=== PATIENT | male | born 1970 | race Two or more races ===

== ENCOUNTER 2024-03-25 15:46 | Emergency (ER) | payer OTHER, SELFPAY ==
[2024-03-25 15:58] VITALS: BP 152/91; PULSE 90; RESP 18; TEMP 37.1; O2SAT 98; BMI 30.4
--- NOTE | 2024-03-25 16:02 | XR_ITS ---
Examination: Knee bilateral, 6 views Technique: Knee AP, lateral, oblique each knee total 6 views Date and time of exam: March 25, 2024 1605 hours INDICATIONS: Abnormal injury to both knees 30 years ago with persistent knee pain more severe the last 2 years. 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
[2024-03-25] MEDS: KETOROLAC INJ 30 MG/ML VIAL IM (16:18)
--- NOTE | 2024-03-25 16:46 | EDNOTE_ITS ---
Lower Extremity Injury RME/HPI General Chief Complaint: Extremity Injury, Lower Stated Complaint: B/L CHRONIC KNEE PAIN Time Seen by Provider: 03/25/24 16:02 Arrival date/time: 03/25/24 15:46 53-year-old male presents emergency department complains of bilateral knee pain patient reports chronic knee pain requiring multiple surgeries patient [facility] patient requesting [facility]-rays at this time secondary to his primary care doctor and that he will have outpatient MRI as per patient. Patient reports he takes Nucynta daily Limitations: no limitations Related Data Previous Rx's ?Medication ?Instructions ?Recorded potassium chloride 20 mEq 20 meq PO QDAY #5 tabs 03/12/20 tablet,extended release Allergies Allergy/AdvReac Type Severity Reaction Status Date / Time clotrimazole [From Lotrimin] Allergy Severe Hives Verified 09/19/21 13:22 Review of Systems Review of Systems Systems Reviewed: All systems reviewed, normal except as documented Constitutional Constitutional: Reports system reviewed and no additional complaints, except as documented, Denies fever(s) and Denies headache(s) Eyes Eyes: Reports system reviewed and no additional complaints, except as documented and Denies blurry vision ENT Ears, Nose, Mouth, and Throat: Reports system reviewed and no additional complaints, except as documented, Denies headache(s), Denies nasal congestion and Denies nasal discharge Cardiovascular Cardiovascular: Reports system reviewed and no additional complaints, except as documented, Denies chest pain and Denies dyspnea Respiratory Respiratory: Reports system reviewed and no additional complaints, except as documented, Denies chest congestion, Denies cough and Denies dyspnea Gastrointestinal Gastrointestinal: Reports system reviewed and no additional complaints, except as documented and Denies abdominal pain Musculoskeletal Musculoskeletal: Reports system reviewed and no additional complaints, except as documented, Reports arthralgias, Denies deformity, Denies numbness, Denies stiffness and Denies tingling Integumentary/Breasts Skin/Breast: Reports system reviewed and no additional complaints, except as documented and Denies rash Neurologic Neurologic: Reports system reviewed and no additional complaints, except as documented, Reports as per HPI, Denies headache(s), Denies numbness and Denies tingling Past Medical History Past Medical History CARDIAC: Positive Hypertension; Negative Congestive Heart Failure RESPIRATORY: Positive Asthma and Pneumonia; Negative Chronic Obstructive Pulmonary Disease (COPD), Emphysema or Tuberculosis GENITOURINARY: Negative Renal Disease MUSCULOSKELETAL: Positive Rheumatoid Arthritis ENDOCRINE: Negative Diabetes Mellitus Type 1 or Diabetes Mellitus Type 2 PSYCHO/SOCIAL: Positive Post Traumatic Stress Disorder OTHER HISTORY: Negative Cancer Social History SMOKING STATUS: Never smoker ED Exam General Limitations: Present no limitations General appearance: Present alert and in no apparent distress Head Head exam: Present atraumatic Eye Eye exam: Present normal appearance, PERRL and EOMI ENT ENT exam: Present normal exam, normal oropharynx and mucous membranes moist Neck Neck exam: Present normal inspection, full ROM and trachea midline Chest Chest inspection: Present normal inspection and symmetric chest wall rise Respiratory Respiratory exam: Present normal lung sounds bilaterally Cardiovascular Cardiovascular exam: Present regular rate, normal rhythm and normal heart sounds Abdominal Exam Abdominal exam: Present soft and normal bowel sounds Extremities Exam Extremities exam: Present normal inspection, full ROM, tenderness (Pain bilateral knees), normal capillary refill and joint swelling (Chronic pain and swelling); Absent pedal edema or calf tenderness Back Exam Back exam: Present normal inspection and full ROM Neurological Exam Neurological exam: Present alert, oriented X3 and CN II-XII intact Psychiatric Psychiatric exam: Present normal affect and normal mood Skin Skin exam: Present warm, dry, intact and normal color Course Quality Measures none Orders Category Date Time Status XR knee BI 3V Stat Exams 03/25/24 16:02 Completed Ketorolac Inj [Toradol Inj] Med 03/25/24 16:02 Discontinued 30 mg IM X1 ONE Vital Signs Vital signs: Vital Signs Temperature 98.8 F 03/25/24 15:58 Pulse Rate 90 03/25/24 15:58 Respiratory Rate 18 03/25/24 15:58 Blood Pressure 152/91 H 03/25/24 15:58 Pulse Oximetry (%) 98 03/25/24 15:58 Oxygen Delivery Method Room Air 03/25/24 15:58 o2 sat 98% r/a wnl Extremity Injury, Lower MDM Narrative MDM Narrative:: 53-year-old male presents emergency department complains of bilateral knee pain patient reports chronic knee pain requiring multiple surgeries patient reports he is a patient of the [place] patient requesting x-rays at this time secondary to his primary care doctor and that he will have outpatient MRI as per patient. Patient reports he takes Nucynta daily Patient given Toradol for pain here X-rays completed patient given copy of his x-ray reports [facility] Patient has a small piece of metal in his left knee patient reports that this is secondary to a shrapnel injury Patient discharged home in no distress to follow-up with primary care doctor in the next 24 to 48 hours and for any worsening symptoms to return to the ER im mediately Patient data External records reviewed:: [facility] previous records Clinical information provided by:: patient Social determinants that could affect healthcare access:: none Patient has the following chronic illnesses:: see hx How is presenting disease/condition affected by chronic disease/condition?: caused by Evaluation data The following diagnostics were reviewed and interpreted by me:: radiology exam(s) Lab and/or radiology exams considered but not ordered:: Radiology obtained Interpretation Summary: Reviewed by me Medications / Prescriptions Medications or Prescriptions considered but not ordered:: Given Medication administrations:: Medication Administration History Discontinued Medications Ketorolac Tromethamine (Ketorolac Inj 30 Mg/Ml Vial) 30 mg IM X1 ONE Stop: 03/25/24 16:03 Last Admin: 03/25/24 16:18 Dose: 30 mg Documented By: Given Consultations Consultation(s) initiated? (list below): No Diagnosis Extremity Injury, Lower Differential Diagnosis: acute internal derangement of knee and other (Knee sprain, knee fracture) Most likely diagnosis given after review of the tests above:: Knee sprain Admission Indicated Admission indicated?: not indicated Admission Request Was there a request for admission?: No Disposition Plan Disposition Plan: Discharge Discharge Attestation Discharge Attestation: The patient and all family members were given an opportunity to ask questions and understood the discharge instructions. Discharge instructions specifically effects, indications for sooner follow up or return to the emergency department, and the expected course of current diagnosis. Patient condition: Stable Discharge Plan Plan Patient Disposition: HOME (Self Care) Disposition Comment: stable Prescriptions/Referrals Prescriptions/Med Rec: No Action potassium chloride 20 mEq tablet extended release 20 meq PO QDAY Qty: 5 0RF Referrals: Ean Ugarte MD [Primary Care Provider] - 03/26/24 Problem List Clinical Impression: Bilateral knee pain Patient/Caregiver Discharge Instructions Education Materials: ED Arthralgia Additional Instructions: Please follow up with your primary care doctor in the next 24-48hrs for any worsening symptoms return here immediately Print Language: Macedonian Stand Alone Forms: Katheryn Award Info., Patient Portal Info Letter PA/LAURO Supervising Physician KHALIF/LAURO Supervising Physician: dr saunders
== END 2024-03-25 16:55 | disposition home or self-care (01) ==
PROVIDERS: Emergency Provider Emergency Medicine; PCP Family Medicine
DX: M25.562 Pain in left knee (principal); M25.561 Pain in right knee
CPT/HCPCS: 73562; 96372; 99283; J1885

== ENCOUNTER → 2024-05-13 | Outpatient (CLI) | payer BC, OTHER, SELFPAY ==
[2024-05-13 15:15] LABS: Basophils # (Auto) 0.1 Thou/mm3 (0.0-0.2); Basophils % (Auto) 1 % (0-2.5); Eosinophils # (Auto) 0.1 Thou/mm3 (0.0-0.5); Eosinophils % (Auto) 2 % (0-10); Hematocrit 43.5 % (41.0-53.0); Hemoglobin 14.6 g/dL (13.5-16.0); Immature Granulocytes % (Auto) 0 % (0-0); Immature Granulocytes Auto 0.02 Thou/mm3 (0.00-0.00); Lymphocytes # (Auto) 3.3 Thou/mm3 (1.0-4.8); Lymphocytes % (Auto) 45 % (10-50); Mean Corpuscular HGB Conc 33.6 g/dl (31.0-37.0); Mean Corpuscular Hemoglobin 29.2 pg (25.0-35.0); Mean Corpuscular Volume 87 fL (80-100); Monocytes # (Auto) 0.7 Thou/mm3 (0.0-0.8); Monocytes % (Auto) 10 % (0-12); Neutrophils # (Auto) 3.1 Thou/mm3 (1.8-7.7); Neutrophils % (Auto) 42 % (37-80); Nucleated Red Blood Cell % 0 /100 WBC (0); Platelet Count 218 Thou/mm3 (140-440); RDW Standard Deviation 42.1 fL (35.1-43.9); White Blood Count 7.3 Thou/mm3 (3.8-10.6)
[2024-05-13 15:24] LABS: Glucose Estimated Average 100 mg/dL (80-131); Hemoglobin A1C 5.1 % Hgb (4.8-6.0)
[2024-05-13 15:45] LABS: Ferritin 119 ng/mL (10.5-307.3); PSA Medicare Annual Scrn 0.71 ng/mL (0-4.00)
[2024-05-13 16:31] LABS: Sed Rate (ESR) 19 mm/hr (0-20)
[2024-05-13 17:02] LABS: RA Screen Negative (Negative)
[2024-05-13 17:08] LABS: Amphetamine/Methamp Scrn,U Negative (Negative); Barbiturate Screen,Urine Negative (Negative); Benzodiazepines Screen,Urine Positive (Negative); Benzoylecgonine Screen, Ur Negative (Negative); Fentanyl Screen,Urine Negative (Negative); Microalbumin, Random Urine 4 mg/L (0-300); Opiate Screen,Urine Negative (Negative); THC Screen,Urine Negative (Negative)
[2024-05-13 17:49] LABS: Creatinine MALB Rnd Ur 269 mg/dL (30-125); Microalbumin Creat Ratio 1 mg/gCrea (<30)
[2024-05-13 19:01] LABS: Alanine Aminotransferase 42 U/L (10-49); Albumin, Serum 4.7 gm/dL (3.5-5.0); Albumin/Globulin Ratio 1.5 (1.2-2.2); Alkaline Phosphatase 103 U/L (46-116); Anion Gap 12 (7-16); Aspartate Amino Transferase 41 U/L (0-34); BUN/Creatinine Ratio 16 Ratio (12-20); Bilirubin,Total 0.6 mg/dL (0.3-1.2); Blood Urea Nitrogen 19 mg/dL (9-23); C-Reactive Protein 0.7 mg/dL (0.0-0.9); Calcium 9.4 mg/dL (8.3-10.6); Calcium (Corrected) 9.4 mg/dL (8.5-10.1); Carbon Dioxide 26.4 mMol/L (20.0-31.0); Cardiac Risk Estimate 4.3 RATIO (4.0-6.7); Chloride 104 mMol/L (98-107); Cholesterol 202 mg/dL (132-200); Creatinine (Component) 1.2 mg/dL (0.6-1.3); Globulin 3.2 gm/dL (2.3-3.5); Glucose 61 mg/dL (74-106); HDL Cholesterol 47 mg/dL (40-60); LDL Cholesterol,Calculated 124 mg/dL (0-130); Osmolality,Calculated 283 (275-295); Sodium 142 mMol/L (136-145); Total Protein 7.9 gm/dL (5.7-8.2); Triglycerides 157 mg/dL (30-150); eGFR > 60 See Note
[2024-05-19 06:53] LABS: ANA Pattern NUCLEAR, SPECKLED; ANA Screen, IFA POSITIVE (NEGATIVE); ANA Titer 1:40 titer
== END | disposition home or self-care (01) ==
PROVIDERS: PCP Family Medicine; Referring Provider Nurse Practitioner Family; Visit Provider Nurse Practitioner Family
DX: M06.9 Rheumatoid arthritis, unspecified (principal); I10 Essential (primary) hypertension; E78.2 Mixed hyperlipidemia; Z79.891 Long term (current) use of opiate analgesic; Z12.5 Encounter for screening for malignant neoplasm of prostate
CPT/HCPCS: 36415; 80053; 80061; 80307; 82043; 82570; 82728; 83036; 84153; 85025; 85652; 86038; 86140; 86430; G0103

== ENCOUNTER → 2024-06-16 | Outpatient (CLI) | payer OTHER, SELFPAY ==
--- NOTE | 2024-06-16 09:30 | XR_ITS ---
Exam: MRI knee without contrast, right Date and time of exam: June 16, 2024 0959 hrs. Indications: Knee pain 10 years, worse beginning March 2024, stiffness instability Technique: Multiple axial, coronal, and sagittal sections on the knee have been obtained. T2-Weighted sagittal, fat-suppressed images, TR 3,500, TE 62, T2 weighted coronal fat-saturated images, TR 3,500, TE 62 Proton density sagittal sections, TR 1800, TE 31. T-1 weighted coronal images, TR 524, TE 13.0 Findings: Medial meniscus anterior horn intact. Medial meniscus, body peripheral horizontal linear tear. Posterior horn medial meniscus peripheral horizontal linear tear. Lateral meniscus anterior horn small vertical tear communicating superior articular surface Lateral meniscus, body truncation intermargin Posterior horn lateral meniscus is intact Anterior cruciate ligament appears intact. Posterior cruciate ligament appears intact. Knee effusion is moderate. Quadriceps and patellar tendons appear intact. There is no evidence of tendinosis. Inflammatory change or fracture of Hoffa's fat pad is not seen. Medial patellar facet demonstrates mild thinning. Lateral patellar facet cartilage demonstrates mild thinning. Trochlear cartilage demonstrates mild thinning. Marrow signal adequate. Medial collateral ligament appears intact. No meniscocapsular separation is seen. Illiotibial band and fibular collateral ligament are intact. Biceps femoris tendons appear intact. Medial femoral condylar articular cartilage demonstrates moderate thinning. Lateral femoral condylar articular cartilage demonstratesmoderate thinning. Tibial plateau cartilage demonstrates moderate thinning. Impression: Medial lateral meniscus tears as above
--- NOTE | 2024-06-16 10:00 | XR_ITS ---
Exam: MRI knee without contrast, left Date and time of exam: June 16, 2024 2159 hrs. Indications: Knee pain beginning 10 years ago, swelling stiffness weakness joint locking and clicking Technique: Multiple axial, coronal, and sagittal sections on the knee have been obtained. T2-Weighted sagittal, fat-suppressed images, TR 3,500, TE 62, T2 weighted coronal fat-saturated images, TR 3,500, TE 62 Proton density sagittal sections, TR 1800, TE 31. T-1 weighted coronal images, TR 524, TE 13.0 Findings: Medial meniscus anterior horn intact. Medial meniscus, body is intact. Posterior horn medial meniscus intact. Lateral meniscus anterior horn is intact Lateral meniscus, body is intact Posterior horn lateral meniscus is intact Anterior cruciate ligament appears intact. Posterior cruciate ligament appears intact. Knee effusion is small. Quadriceps and patellar tendons appear intact. There is no evidence of tendinosis. Inflammatory change or fracture of Hoffa's fat pad is not seen. Medial patellar facet demonstrates mild thinning. Lateral patellar facet cartilage demonstrates mild thinning. Trochlear cartilage demonstrates mild thinning. Marrow signal extensive magnetic susceptibility artifact. Medial collateral ligament appears intact. No meniscocapsular separation is seen. Illiotibial band and fibular collateral ligament are intact. Biceps femoris tendons appear intact. Medial femoral condylar articular cartilage demonstrates moderate thinning. Lateral femoral condylar articular cartilage demonstratesmoderate thinning. Tibial plateau cartilage demonstrates moderate thinning. Impression: Opaque foreign body at the medial aspect of the soft tissue knee creates extensive magnetic susceptibility artifact Menisci cruciate ligaments appear intact
== END | disposition home or self-care (01) ==
PROVIDERS: PCP Family Medicine
DX: S83.241A Other tear of medial meniscus, current injury, right knee, initial encounter (principal); S80.252A Superficial foreign body, left knee, initial encounter; X58.XXXA Exposure to other specified factors, initial encounter; M25.862 Other specified joint disorders, left knee
CPT/HCPCS: 73718

== ENCOUNTER → 2024-12-16 | Outpatient (CLI) | payer BC, OTHER, SELFPAY ==
[2024-12-16 09:10] LABS: Cardiac Risk Estimate 4.0 RATIO (4.0-6.7); Cholesterol 185 mg/dL (132-200); HDL Cholesterol 46 mg/dL (40-60); LDL Cholesterol,Calculated 114 mg/dL (0-130); Triglycerides 127 mg/dL (30-150)
== END | disposition home or self-care (01) ==
PROVIDERS: PCP Nurse Practitioner Family; Referring Provider Nurse Practitioner Family; Visit Provider Nurse Practitioner Family
DX: E29.1 Testicular hypofunction (principal)
CPT/HCPCS: 36415; 80061; 82627; 82670; 84270; 84402; 84403

== ENCOUNTER 2025-01-15 20:09 | Emergency (ER) | payer OTHER, BC, SELFPAY ==
[2025-01-15 20:11] VITALS: BMI 28.8
[2025-01-15 21:48] VITALS: BP 155/84; PULSE 90; RESP 16; TEMP 36.9; O2SAT 99
--- NOTE | 2025-01-15 21:57 | XR_ITS ---
Examination: CT abdomen and pelvis without contrast. Coronal 3-D reconstructions. Sagittal 2-D reconstructions. Date and time of exam:January 15, 2025 1012 hrs. Indications: Right flank pain beginning 3 weeks ago CTDI: vol (mGy): 8.28 DLP: (mGycm): 486 Technique: Axial images of the abdomen have been obtained, 3 mm slice thickness Intravenous contrast material has not been administered. Low dose protocols were performed. One or more of the following dose reduction techniques were used; automated exposure control, adjustment of the mA and/or KV according to patient size, use of iterative reconstruction technique. Findings: No focal liver or splenic lesions No gallstones No pancreatic or adrenal mass Mild renal scarring No renal or ureteral calculi, mild perinephric stranding No hydronephrosis Normal appendix Colonic diverticulosis No significant prostatomegaly No bladder mass or bladder calculi Impression: Mild renal parenchymal scar formation Mild perinephric stranding, consider urinary tract infection No renal or ureteral calculi, no hydronephrosis Normal appendix No bladder mass or bladder calculi Advanced degenerative disc disease L4-L5, L5-S1
--- NOTE | 2025-01-15 21:57 | PD.EDRME ---
Rapid Medical Screening Exam [facility] Arrival date/time: 01/15/25 20:09 54M with no significant PMH presents to ED with several weeks of RUQ/R flank pain. Patient denies N/V and hematuria/dysuria. Chief Complaint: Abdominal Pain Vital signs: Vital Signs Temperature 98.4 F 01/15/25 21:48 Pulse Rate 90 01/15/25 21:48 Respiratory Rate 16 01/15/25 21:48 Blood Pressure 155/84 H 01/15/25 21:48 Pulse Oximetry (%) 99 01/15/25 21:48 Oxygen Delivery Method Room Air 01/15/25 21:48
[2025-01-15 22:35] LABS: Collection Type, Urine Clean Catch
[2025-01-15 22:42] LABS: Basophils # (Auto) 0.1 Thou/mm3 (0.0-0.2); Basophils % (Auto) 1 % (0-2.5); Eosinophils # (Auto) 0.2 Thou/mm3 (0.0-0.5); Eosinophils % (Auto) 3 % (0-10); Hematocrit 39.4 % (41.0-53.0); Hemoglobin 13.2 g/dL (13.5-16.0); Immature Granulocytes Auto 0.03 Thou/mm3 (0.00-0.00); Lymphocytes # (Auto) 3.8 Thou/mm3 (1.0-4.8); Lymphocytes % (Auto) 42 % (10-50); Mean Corpuscular HGB Conc 33.5 g/dl (31.0-37.0); Mean Corpuscular Hemoglobin 29.9 pg (25.0-35.0); Mean Corpuscular Volume 89 fL (80-100); Monocytes # (Auto) 0.9 Thou/mm3 (0.0-0.8); Monocytes % (Auto) 10 % (0-12); Neutrophils # (Auto) 4.0 Thou/mm3 (1.8-7.7); Neutrophils % (Auto) 44 % (37-80); Nucleated Red Blood Cell # 0.00 Thou/mm3 (0.00-0.00); Nucleated Red Blood Cell % 0 /100 WBC (0); Platelet Count 213 Thou/mm3 (140-440); RDW Standard Deviation 43.4 fL (35.1-43.9); Red Blood Count 4.41 Miln/mm3 (4.50-5.90); White Blood Count 9.0 Thou/mm3 (3.8-10.6)
[2025-01-15 22:46] LABS: Bilirubin,Urine Negative (Negative); Blood,Urine Negative (Negative); Clarity,Urine Clear (Clear/Hazy); Color,Urine Yellow (Lt Yel-Yel); Culture Indicated,Urine Not Indicated; Glucose, Urine 1+ (Negative); Ketones,Urine Negative (Negative); Leukocyte Esterase,Urine Negative (Negative); Nitrite,Urine Negative (Negative); PH,Urine 6.0 (5.0-7.0); Protein,Urine Trace (Neg - Trace); RBC,Urine 3 /hpf (0-3); Specific Gravity,Urine 1.032 (1.001-1.035); Squamous Epithelial Cell,Urine 1 /hpf (0-5); Urobilinogen,Urine Negative mg/dL (0.0-1.0); WBC,Urine < 1 /hpf (0-5)
--- NOTE | 2025-01-15 22:46 | XR_ITS ---
Examination: Abdomen sonogram, Limited Date and time of exam: January 16, thousand 25, 0034 hrs. Indications: Onset right upper abdominal pain beginning 3 weeks ago Technique: Real-time luther scale transabdominal sonographic images of the upper abdomen obtained. Findings: Normal gallbladder. Normal common bile duct 0.2 cm Pancreas obscured by bowel gas Liver 16.8 cm fatty infiltration Normal hepatopedal portal venous flow Patent IVC Impression: Normal gallbladder
[2025-01-15 22:52] LABS: Amphetamine/Methamp Scrn,U Negative (Negative); Barbiturate Screen,Urine Negative (Negative); Benzodiazepines Screen,Urine Negative (Negative); Benzoylecgonine Screen, Ur Negative (Negative); Fentanyl Screen,Urine Negative (Negative); Opiate Screen,Urine Negative (Negative); THC Screen,Urine Negative (Negative)
[2025-01-15 23:11] LABS: Alanine Aminotransferase 30 U/L (10-49); Albumin, Serum 4.3 gm/dL (3.5-5.0); Albumin/Globulin Ratio 1.5 (1.2-2.2); Alkaline Phosphatase 100 U/L (46-116); Anion Gap 6 (7-16); Aspartate Amino Transferase 34 U/L (0-34); BUN/Creatinine Ratio 15 Ratio (12-20); Bilirubin,Total 0.3 mg/dL (0.3-1.2); Blood Urea Nitrogen 16 mg/dL (9-23); Calcium 9.0 mg/dL (8.3-10.6); Calcium (Corrected) 9.0 mg/dL (8.5-10.1); Carbon Dioxide 28.6 mMol/L (20.0-31.0); Chloride 111 mMol/L (98-107); Creatinine (Component) 1.1 mg/dL (0.6-1.3); Estimated Creatinine Clearance 84.5 mL/min (>60); Globulin 2.8 gm/dL (2.3-3.5); Glucose 75 mg/dL (74-106); Lipase 35 U/L (12-53); Osmolality,Calculated 290 (275-295); Potassium 3.9 mMol/L (3.4-5.1); Sodium 146 mMol/L (136-145); Total Protein 7.1 gm/dL (5.7-8.2); eGFR > 60 See Note
[2025-01-16] VITALS: BP 148/80; PULSE 85; RESP 17; TEMP 36.9; O2SAT 98
--- NOTE | 2025-01-16 00:16 | PD.EDABDPN ---
ED Abdominal Pain RME/HPI General Chief Complaint: Abdominal Pain Stated complaint: RIGHT UPPER ABD PAIN, RIGHT BACK PAIN Arrival date/time: 01/15/25 20:09 RME / HPI RME / HPI narrative: 01/15/25 20:09 54M with no significant PMH presents to ED with several weeks of RUQ/R flank pain. Patient denies N/V and hematuria/dysuria. DR. CAMPOVERDE MAIN ED EVALUATION: Patient presenting with RUQ abdominal pain radiating toward the right flank for approximately 2-3 weeks duration. No definitive association with eating. Denies nausea, vomiting, fever, chills, or dysuria. Last normal BM within the last day. PMH: Fibromyalgia, No DM or HTN. PSH: Inguinal hernia repair and multiple orthopedic procedures. Allergies: Terbinafine. Related Data Previous Rx's ?Medication ?Instructions ?Recorded potassium chloride 20 mEq 20 meq PO QDAY #5 tabs 03/12/20 tablet,extended release acetaminophen 300 mg-codeine 15 mg 1 tab PO Q8H PRN pain #20 tabs 01/16/25 tablet cefdinir 300 mg capsule 300 mg PO BID #10 caps 01/16/25 Allergies Allergy/AdvReac Type Severity Reaction Status Date / Time clotrimazole (From Lotrimin) Allergy Severe Hives Verified 01/15/25 20:11 Review of Systems Review of Systems Systems Reviewed: All systems reviewed, normal except as documented Past Medical History Past Medical History CARDIAC: Positive Hypertension RESPIRATORY: Positive Asthma and Pneumonia MUSCULOSKELETAL: Positive Rheumatoid Arthritis PSYCHO/SOCIAL: Positive Post Traumatic Stress Disorder ED Exam Narrative Physical exam: GEN. APPEARANCE: The patient is alert awake oriented X-3 in no distress, lying down comfortably, does not look ill/toxic. Patient has good eye contact. Patient is cooperative. VITALS: All vitals were reviewed and the pulse ox is 98% on room air which is normal according to my interpretation. HEENT: Normocephalic, atraumatic. Pupils are equal and reactive. Oral mucosa is moist. Patent Nares NECK: Supple, nontender, no thyromegaly, no meningismus, no JVD, no step offs CHEST: Symmetrical, atraumatic, and with equal expansion , Nontender on palpation no deformity and no crepitus. CARDIOVASCULAR: Heart regular rhythm no murmur or gallop rub or extra beats. LUNGS: Clear to auscultation bilaterally with symmetrical chest rise. No laboring tachypnea or wheezing. No intercostal subcostal retraction. No rales and no rhonchi. ABDOMEN: Soft, flat, gyqo-xs-bdeqxrul tenderness to the RUQ extending towards the right flank, no gross peritoneal findings noted, no guarding or rebound tenderness. There are no abnormal masses palpated. Active and normal bowel sounds. EXTREMITIES: Nontender. No edema. No cyanosis. Patient is able to move all 4 extremities well, with full ROM and good CSM. SKIN: Warm and dry, no jaundice or rashes noted. MUSCULOSKELETAL: No lubar or midline bony tenderness. There is no CVA tenderness. No paraspinal muscle spasm or tenderness. NEURO: Patient is MANTILLA x 4, Cranial nerves II through XII grossly intact. There is no focal neurologic deficits noted. GCS is 15, PNS and [employer] appear grossly intact. PSYCHIATRIC: Patient is in normal mood and affect, cooperative, no SI or HI or hallucinations. Course Quality Measures none Orders Category Date Time Status CT abdomen pelvis wo con Stat Exams 01/15/25 21:57 Completed US gall bladder Stat Exams 01/15/25 22:46 Taken CBC Stat Lab 01/15/25 22:20 Completed CMP [Comprehensive Metabolic Panel] Stat Lab 01/15/25 22:20 Completed Drug Screen,Urine Stat Lab 01/15/25 22:19 Completed Lipase Stat Lab 01/15/25 22:20 Completed Urinalysis, C/S if Indicated Stat Lab 01/15/25 22:19 Completed Sodium Chloride 0.9% 1000 ml [Ns] 1,000 ml Med 01/16/25 00:14 Discontinued IV 999 mls/hr cefTRIAXone/D5w 1gm IV premix [Rocephin/D5w 1gm IV Med 01/16/25 00:14 Discontinued premix] 1 gm in 50 ml IV X1 Vital Signs Vital signs: Vital Signs Temperature 98.4 F 01/15/25 21:48 Pulse Rate 90 01/15/25 21:48 Respiratory Rate 16 01/15/25 21:48 Blood Pressure 155/84 H 01/15/25 21:48 Pulse Oximetry (%) 99 01/15/25 21:48 Oxygen Delivery Method Room Air 01/15/25 21:48 Abdominal Pain MDM MDM Narrative MDM Narrative:: Scribe Attestation: I, Ave Alas, am scribing for and in the presence of Dr. Campoverde. Provider Notation: Although this document has been carefully reviewed, there may still be some phonetic and other typographical errors. These errors are purely grammatical due to imperfections in the software program and should not be construed in any way to compromise the substance of the patient's medical care during this visit. Patient presenting with RUQ abdominal pain radiating toward the right flank for approximately 2-3 weeks duration. No definitive association with eating. Please see PE findings. Laboratory markers demonstrate evidence of dehydration with sodium of 146, chloride of 111. LFT?s within normal limits. UA unremarkable. A CT scan of abdomen/pelvis was obtained and demonstrates mild perinephric stranding stranded, no calculi evident. Patient hydrated with normal saline to correct volume deficit and IV ABX administered. Will likely discharge to home with close f/u with PMD recommended. Patient data External records reviewed:: [facility] previous records (Reviewed prior ED records from 03/25/24. Patient was seen for Bilateral knee pain.) Clinical information provided by:: patient Social determinants that could affect healthcare access:: none Patient has the following chronic illnesses:: Hypertension, Asthma, Rheumatoid Arthritis, Post Traumatic Stress Disorder How is presenting disease/condition affected by chronic disease/condition?: exacerbated by Evaluation data The following diagnostics were reviewed and interpreted by me:: lab results and radiology exam(s) Lab and/or radiology exams considered but not ordered:: None Interpretation Summary: RADIOLOGY Abdomen/Pelvis CT: Findings: No focal liver or splenic lesions No gallstones No pancreatic or adrenal mass Mild renal scarring No renal or ureteral calculi, mild perinephric stranding No hydronephrosis Normal appendix Colonic diverticulosis No significant prostatomegaly No bladder mass or bladder calculi Impression: Mild renal parenchymal scar formation Mild perinephric stranding, consider urinary tract infection No renal or ureteral calculi, no hydronephrosis Normal appendix No bladder mass or bladder calculi Advanced degenerative disc disease L4-L5, L5-S1 Medications / Prescriptions Medications or Prescriptions considered but not ordered:: None Medication administrations:: Medication Administration History Discontinued Medications Ceftriaxone Sodium/Dextrose (Rocephin/D5w 1gm Iv Premix) 1 gm in 50 mls @ 100 mls/hr IV X1 ONE Stop: 01/16/25 00:43 Last Infusion: 01/16/25 01:33 Dose: Infused Documented By: Admin: 01/16/25 00:54 Dose: 100 mls/hr Documented By: DT Sodium Chloride (Ns) 1,000 mls @ 999 mls/hr IV .Q1H1M ONE Stop: 01/16/25 01:14 Last Infusion: 01/16/25 02:00 Dose: Infused Documented By: Admin: 01/16/25 00:54 Dose: 999 mls/hr Documented By: DT See above if any Consultations Consultation(s) initiated? (list below): No Diagnosis Differential diagnosis abdominal pain: abdominal pain, acute appendicitis, calculus of kidney, constipation, diverticulitis, gastroenteritis, pancreatitis, small bowel obstruction and other (UTI, Cystitis) Most likely diagnosis given after review of the tests above:: UTI Admission Indicated Admission indicated?: not indicated Explain why admission is indicated or not indicated:: Patient does not meet admission criteria Admission Request Was there a request for admission?: No Disposition Plan Disposition Plan: Discharge Discharge Attestation Discharge Attestation: The patient and all family members were given an opportunity to ask questions and understood the discharge instructions. Discharge instructions specifically effects, indications for sooner follow up or return to the emergency department, and the expected course of current diagnosis. Patient condition: Stable Discharge Plan Plan Patient Disposition: HOME (Self Care) Discharge Disposition comment: Stable Prescriptions/Referrals Prescriptions/Med Rec: New cefdinir 300 mg capsule 300 mg PO BID Qty: 10 0RF acetaminophen-codeine 300-15 mg tablet 1 tab PO Q8H PRN (Reason: pain) Qty: 20 0RF No Action potassium chloride 20 mEq tablet extended release 20 meq PO QDAY Qty: 5 0RF Referrals: Felix Esparza MD [Primary Care Provider] - In 1 week Problem List Clinical Impression: UTI (urinary tract infection) Patient/Caregiver Discharge Instructions Discharge Activity: activity as tolerated Diet Instructions: Increase free water consumption Education Materials: Anatomy of the Male Urinary Tract, ED Pyelonephritis, Male (Adult) Additional Instructions: Increased free fluid intake. Reduce caffeine. Medication as directed. Follow-up with primary care for consideration of urological referral. Print Language: Irish Stand Alone Forms: Katheryn Award Info., Patient Portal Info Letter
[2025-01-16] MEDS: cefTRIAXone/D5w 1gm IV premix 1 GM/50 ML BAG IV (00:54)
[2025-01-16] MEDS: SODIUM CHLORIDE 0.9% 1000 ML 1,000 ML 999 ML IV (00:54)
--- NOTE | 2025-01-16 02:01 | PRELIM_ITS ---
Gallbladder ultrasound. January 16, 2025 0026 hours Clinical history: RUQ pain Comparison: No prior study is available for comparison. Findings: The visualized liver is enlarged measuring 16.8 cm and increased in echogenicity without mass or ductal dilatation. No gallbladder calculus, wall thickening or pericholecystic fluid is identified. The common duct is normal in caliber at 2 mm. The portal vein demonstrates hepatopetal flow. No free fluid is demonstrated on the submitted images. Impression: No sonographic evidence of cholelithiasis, acute cholecystitis or biliary obstruction. Fatty liver Report Electronically Signed By: Jose Tatum 01/16/2025 2:00:26 AM [EST]
[2025-01-16 03:41] VITALS: BP 125/85; PULSE 80; RESP 14; TEMP 37; O2SAT 99
== END 2025-01-16 03:41 | disposition home or self-care (01) ==
PROVIDERS: Physician Assistant; Emergency Provider Emergency Medicine; PCP Family Medicine
DX: N39.0 Urinary tract infection, site not specified (principal); M51.360 Other intervertebral disc degeneration, lumbar region with discogenic back pain only; M51.370 Other intervertebral disc degeneration, lumbosacral region with discogenic back pain only; R10.11 Right upper quadrant pain
CPT/HCPCS: 36415; 74176; 76705; 80053; 80307; 81001; 83690; 85025; 96365; 99284; J0696; J7030